=== PATIENT | female | born 1990 | race Caucasian/White ===

== ENCOUNTER 2019-11-08 07:55 | Outpatient (CLI) | payer OTHER, SELFPAY ==
[~2019-11-08 07:55] MED LIST: ACETAMINOPHEN 500 MG TAB ONE; LORATADINE 10 MG TAB ONE
== END 2019-11-08 10:45 | disposition home or self-care (01) ==
LOC: M INFU 07:55
PROVIDERS: ATTEND Internal Medicine Gastroenterology
DX: K51.00 Ulcerative (chronic) pancolitis without complications (principal)

== ENCOUNTER 2020-01-20 06:59 | Outpatient (CLI) | payer OTHER ==
[~2020-01-20] VITALS: Ht 175.3 cm; Wt 57.7 kg
[2020-01-20 07:00] VITALS: BP 111/55
[2020-01-20] MEDS ORDERED: ACETAMINOPHEN 500 MG TAB PO ONE (07:15)
[2020-01-20] MEDS ORDERED: NS 1,000 ML IV SCH (07:15)
[2020-01-20] MEDS ORDERED: inFLIXimab INJECTION 300 MG in NS 220 ML IV ONE (07:15)
[2020-01-20] MEDS ORDERED: LORATADINE 10 MG TAB PO ONE (07:15)
[2020-01-20] MEDS ORDERED: methylPREDNISolone 125MG 2ML VIAL IV PRN (07:30)
[2020-01-20] MEDS ORDERED: diphenhydrAMINE 50MG/ML VIAL (J1200) IV PRN (07:30)
[2020-01-20 07:43] LABS: HEMATOCRIT 35.6 % (36.0-47.0); HEMOGLOBIN 11.5 g/dl (12.0-15.5); MEAN CORPUSCULAR HEMOGLOBIN 29.4 pg (27.0-33.0); MEAN CORPUSCULAR HGB CONC 32.3 g/dl (32.0-36.5); PLATELET COUNT, AUTOMATED 206 10^3/uL (150-450); RED BLOOD COUNT 3.91 10^6/uL (4.00-5.40)
[2020-01-20 07:50] VITALS: BP 111/55
[2020-01-20 08:15] VITALS: BP 112/64
[2020-01-20 08:16] LABS: ALBUMIN 3.6 GM/DL (3.2-5.2); ALT/SGPT 16 U/L (12-78); BILIRUBIN,TOTAL 0.3 MG/DL (0.2-1.0); BLOOD UREA NITROGEN 15 MG/DL (7-18); CALCIUM LEVEL 8.8 MG/DL (8.5-10.1); CARBON DIOXIDE LEVEL 25 MEQ/L (21-32); CHLORIDE LEVEL 109 MEQ/L (98-107); CREATININE FOR GFR 0.73 MG/DL (0.55-1.30); GLOMERULAR FILTRATION RATE > 60.0 (>60); GLUCOSE, FASTING 81 MG/DL (70-100); POTASSIUM SERUM 4.3 MEQ/L (3.5-5.1); SODIUM LEVEL 140 MEQ/L (136-145); TOTAL PROTEIN 7.1 GM/DL (6.4-8.2)
[2020-01-20 09:00] VITALS: BP 104/60
[2020-01-20 09:05] VITALS: BP 104/60
== END 2020-01-20 09:10 | disposition home or self-care (01) ==
LOC: M INFU 06:59
PROVIDERS: ATTEND Internal Medicine Gastroenterology
DX: K51.00 Ulcerative (chronic) pancolitis without complications (principal)

== ENCOUNTER 2020-03-16 06:58 | Outpatient (CLI) | payer OTHER ==
[~2020-03-16] VITALS: Ht 175.3 cm; Wt 58.0 kg
[2020-03-16] MEDS ORDERED: inFLIXimab INJECTION 300 MG in NS 220 ML IV ONE (07:00)
[2020-03-16] MEDS ORDERED: LORATADINE 10 MG TAB PO ONE (07:00)
[2020-03-16] MEDS ORDERED: ACETAMINOPHEN 650MG PO PRIOR TO INFUSION PO ONE (07:00)
[2020-03-16] MEDS ORDERED: NS 1,000 ML IV SCH (07:00)
[2020-03-16] MEDS ORDERED: methylPREDNISolone 40MG 1ML VIAL IV PRN (07:01)
[2020-03-16] MEDS ORDERED: diphenhydrAMINE 50MG/ML VIAL (J1200) IV PRN (07:01)
[2020-03-16 07:10] VITALS: BP 104/69
[2020-03-16 08:01] VITALS: BP 109/57
[2020-03-16 08:50] VITALS: BP 104/70
== END 2020-03-16 08:45 | disposition home or self-care (01) ==
LOC: M INFU 06:58
PROVIDERS: ATTEND Internal Medicine Gastroenterology
DX: K51.00 Ulcerative (chronic) pancolitis without complications (principal); Z88.1 Allergy status to other antibiotic agents; Z88.2 Allergy status to sulfonamides

== ENCOUNTER 2020-07-06 06:55 | Outpatient (CLI) | payer OTHER ==
[~2020-07-06] VITALS: Ht 175.3 cm; Wt 59.1 kg
[~2020-07-06 06:55] MED LIST changes: -ACETAMINOPHEN 500 MG TAB ONE; -LORATADINE 10 MG TAB ONE; +methylPREDNISolone 125MG 2ML VIAL IV PRN
[2020-07-06] MEDS ORDERED: ACETAMINOPHEN 500 MG TAB PO ONE (07:00)
[2020-07-06] MEDS ORDERED: LORATADINE 10 MG TAB PO ONE (07:00)
[2020-07-06] MEDS ORDERED: inFLIXimab INJECTION 400 MG in NS 210 ML IV ONE (07:00)
[2020-07-06 07:01] VITALS: BP 111/58
[2020-07-06] MEDS ORDERED: diphenhydrAMINE 50MG/ML VIAL (J1200) IV PRN (07:01)
[2020-07-06 07:27] LABS: HEMATOCRIT 34.4 % (36.0-47.0); HEMOGLOBIN 11.1 g/dl (12.0-15.5); MEAN CORPUSCULAR HGB CONC 32.3 g/dl (32.0-36.5); MEAN CORPUSCULAR VOLUME 89.8 fl (80.0-96.0); PLATELET COUNT, AUTOMATED 228 10^3/uL (150-450); RED BLOOD COUNT 3.83 10^6/uL (4.00-5.40); WHITE BLOOD COUNT 6.5 10^3/uL (4.0-10.0)
[2020-07-06 07:50] LABS: ALBUMIN 3.6 GM/DL (3.2-5.2); ALT/SGPT 24 U/L (12-78); BILIRUBIN,TOTAL 0.5 MG/DL (0.2-1.0); BLOOD UREA NITROGEN 17 MG/DL (7-18); CALCIUM LEVEL 8.9 MG/DL (8.5-10.1); CARBON DIOXIDE LEVEL 27 MEQ/L (21-32); CHLORIDE LEVEL 108 MEQ/L (98-107); CREATININE FOR GFR 0.55 MG/DL (0.55-1.30); GLOMERULAR FILTRATION RATE > 60.0 (>60); GLUCOSE, FASTING 86 MG/DL (70-100); POTASSIUM SERUM 4.1 MEQ/L (3.5-5.1); SODIUM LEVEL 139 MEQ/L (136-145)
[2020-07-06 07:52] VITALS: BP 110/66
[2020-07-06 08:44] VITALS: BP 119/67
== END 2020-07-06 08:45 | disposition home or self-care (01) ==
LOC: M INFU 06:55
PROVIDERS: ATTEND Internal Medicine Gastroenterology
DX: K51.00 Ulcerative (chronic) pancolitis without complications (principal); Z88.2 Allergy status to sulfonamides

== ENCOUNTER 2020-09-05 07:37 | Outpatient (CLI) | payer OTHER ==
[~2020-09-05] VITALS: Ht 175.3 cm; Wt 59.1 kg
[~2020-09-05 07:37] MED LIST changes: +ACETAMINOPHEN 500 MG TAB PO ONE; +LORATADINE 10 MG TAB PO ONE; +diphenhydrAMINE 50MG/ML VIAL (J1200) IV PRN; +inFLIXimab INJECTION 400 MG in NS 210 ML IV ONE
[2020-09-05 07:50] VITALS: BP 103/67
[2020-09-05 09:40] VITALS: BP 119/75
== END 2020-09-05 09:45 | disposition home or self-care (01) ==
LOC: M INFU 07:37
PROVIDERS: ATTEND Internal Medicine Gastroenterology
DX: K51.019 Ulcerative (chronic) pancolitis with unspecified complications (principal)